=== PATIENT | female | born 1980 | race Caucasian/White ===

== ENCOUNTER 2016-10-26 14:28 | Inpatient (IN) | payer OTHER ==
[~2016-10-26] VITALS: Ht 154.9 cm; Wt 61.4 kg
[2016-10-26 14:59] LABS: MEAN PLAT.VOLUME 10.2 uM^3 (9.5-12.4); PLATELET COUNT 237 K/uL (156-360)
[2016-10-26 15:10] LABS: CHLORIDE 102 mEq/L (99-109); POTASSIUM 3.3 mEq/L (3.7-5.4); SODIUM 137 mEq/L (136-147)
[2016-10-26 15:11] LABS: GLUCOSE 127 mg/dL (70-99)
[2016-10-26 15:13] LABS: ANION GAP 15 MEQ/L (2-14)
[2016-10-26 15:15] LABS: GFR ESTIMATE (CALCULATED) > 59 mL/min/
[2016-10-26 15:16] LABS: UREA NITROGEN (BUN) 15 mg/dL (9-23)
[2016-10-26 15:26] LABS: HEMATOCRIT 44.6 % (36.0-46.0); MCH 33.3 PG (29.0-34.0); MCHC 35.9 G/DL (30.0-36.0); MCV 92.7 FL (83-99); RBC DIS.WIDTH-CV 12.7 % (11.8-14.6); RBC DIS.WIDTH-SD 43.3 % (39-53); RED BLOOD COUNT 4.81 M/uL (3.80-5.20); WHITE BLOOD COUNT 29.7 K/uL (4.1-10.2)
[2016-10-26 15:28] LABS: ADD MIUA? YES; BILIRUBIN SMALL; BLOOD NEGATIVE; COLOR AMBER ((YELLOW)); GLUCOSE (STRIP) NEGATIVE; KETONES 5; LEUKOCYTES MODERATE; NITRITE NEGATIVE; PROTEIN (STRIP) 100; SPECIFIC GRAVITY 1.036 (1.000-1.030); UROBILINOGEN 0.2 MG/DL (0.2-1.0)
[2016-10-26 15:33] LABS: TOTAL BILIRUBIN 1.2 mg/dL (0.0-1.0)
[2016-10-26 15:33] LABS: INTERNAL CONTROL VALID? YES
[2016-10-26 15:34] LABS: ALKALINE PHOSPHATASE 66 IU/L (3-129)
[2016-10-26 15:37] LABS: DIRECT BILIRUBIN 0.6 mg/dL (0.0-0.3)
[2016-10-26 15:38] LABS: LIPASE 8 U/L (1.0-51.0)
[2016-10-26 15:55] LABS: BACTERIA NONE SEEN /HPF; EPITHELIAL CELLS 2+ /HPF; HYALINE CASTS 15-20 /LPF; MUCUS 2+ /LPF; UCUL ADDED? YES; WHITE BLOOD CELLS TNTC /HPF (0-5)
[2016-10-26] MEDS ORDERED: FLAGYL500 MG PO (16:42)
[2016-10-26] MEDS ORDERED: MACROBID100 MG PO (16:42)
[2016-10-26] MEDS ORDERED: ZYRTEC10 M3 PO (16:42)
[2016-10-26] MEDS ORDERED: TYLENOL EXTRA500 MG PO (16:43)
[2016-10-26] MEDS ORDERED: FLONASE16 G1 BOTH NARES (16:43)
[2016-10-26] MEDS ORDERED: ADDERALL XR 1515 MG PO (16:43)
[2016-10-26] MEDS ORDERED: ONE-A-DAY ESSE1 EAC1 PO (16:44)
[2016-10-26 20:00] VITALS: BP 140/77
[2016-10-27] VITALS (8 sets, daily range): BP systolic 116–141; BP diastolic 56–91
[2016-10-27 06:41] LABS: HEMATOCRIT 37.5 % (36.0-46.0); MCH 32.7 PG (29.0-34.0); MCHC 34.4 G/DL (30.0-36.0); MCV 94.9 FL (83-99); MEAN PLAT.VOLUME 10.6 uM^3 (9.5-12.4); PLATELET COUNT 176 K/uL (156-360); RBC DIS.WIDTH-CV 13.1 % (11.8-14.6); RBC DIS.WIDTH-SD 45.3 % (39-53); RED BLOOD COUNT 3.95 M/uL (3.80-5.20); WHITE BLOOD COUNT 26.8 K/uL (4.1-10.2)
[2016-10-27 07:16] LABS: ANION GAP 12 MEQ/L (2-14); CHLORIDE 108 MEQ/L (99-109); GFR ESTIMATE (CALCULATED) > 59 mL/min/; POTASSIUM 3.2 MEQ/L (3.7-5.4); SAMPLE HEMOLYSIS CHECK 0; SAMPLE ICTERIC CHECK 0; SAMPLE LIPEMIA CHECK 0; SODIUM 141 MEQ/L (136-147); UREA NITROGEN (BUN) 13 mg/dL (9-23)
[2016-10-27 07:17] LABS: GLUCOSE 81 mg/dL (70-99)
[2016-10-27 07:34] LABS: ABS NEUTROPHIL COUNT 23.3; ATYPICAL LYMPHOCYTE 0.9 %; BAND NEUTROPHILS 38.8 % (0-8.0); EOSINOPHIL ABS CT 0.5; EOSINOPHILS 1.7 % (0-5.0); INSTRUMENT ABS NEUTROPHIL CT 24.5 K/uL; LYMPHOCYTES 2.1 % (15.0-45.0); METAMYELOCYTES 5.2 %; MYELOCYTES 0.4 %; PLAT.SUFFICIENCY DECREASED; SEG.NEUTROPHILS 48.3 % (46.0-76.0)
[2016-10-27 10:59] LABS: C DIFF TOXIN NEGATIVE (NEGATIVE); PROBE CHECK PASS; SPECIMEN PROCESSING CONTROL PASS
[2016-10-28] VITALS (7 sets, daily range): BP systolic 131–146; BP diastolic 62–91
[2016-10-28 06:04] LABS: HEMATOCRIT 35.7 % (36.0-46.0); MCH 33.2 PG (29.0-34.0); MCHC 35.3 G/DL (30.0-36.0); MCV 94.2 FL (83-99); MEAN PLAT.VOLUME 10.5 uM^3 (9.5-12.4); PLATELET COUNT 169 K/uL (156-360); RBC DIS.WIDTH-CV 13.2 % (11.8-14.6); RBC DIS.WIDTH-SD 45.7 % (39-53); RED BLOOD COUNT 3.79 M/uL (3.80-5.20); WHITE BLOOD COUNT 19.9 K/uL (4.1-10.2)
[2016-10-28 06:31] LABS: ANION GAP 8 MEQ/L (2-14); CHLORIDE 108 MEQ/L (99-109); GFR ESTIMATE (CALCULATED) > 59 mL/min/; GLUCOSE 66 mg/dL (70-99); POTASSIUM 3.1 MEQ/L (3.7-5.4); SAMPLE HEMOLYSIS CHECK 0; SAMPLE ICTERIC CHECK 0; SAMPLE LIPEMIA CHECK 0; SODIUM 139 MEQ/L (136-147); UREA NITROGEN (BUN) 8 mg/dL (9-23)
[2016-10-28 13:52] LABS: CHLAMYDIA TRACHOMATIS NEGATIVE; NEISSERIA GONORRHOEAE POSITIVE
[2016-10-29 04:07] VITALS: BP 129/63
[2016-10-29 08:00] VITALS: BP 125/74
[2016-10-29 11:24] VITALS: BP 124/76
[2016-10-29 22:52] VITALS: BP 142/76
[2016-10-30 06:13] LABS: HEMATOCRIT 35.3 % (36.0-46.0); MCH 32.7 PG (29.0-34.0); MCHC 35.7 G/DL (30.0-36.0); MCV 91.7 FL (83-99); MEAN PLAT.VOLUME 10.1 uM^3 (9.5-12.4); PLATELET COUNT 177 K/uL (156-360); RBC DIS.WIDTH-CV 13.4 % (11.8-14.6); RBC DIS.WIDTH-SD 45.6 % (39-53); RED BLOOD COUNT 3.85 M/uL (3.80-5.20); WHITE BLOOD COUNT 16.4 K/uL (4.1-10.2)
[2016-10-30 06:40] LABS: ANION GAP 12 MEQ/L (2-14); CHLORIDE 105 MEQ/L (99-109); GFR ESTIMATE (CALCULATED) > 59 mL/min/; GLUCOSE 66 mg/dL (70-99); MAGNESIUM 1.6 mg/dl (1.3-2.7); POTASSIUM 2.8 MEQ/L (3.7-5.4); SAMPLE HEMOLYSIS CHECK 0; SAMPLE ICTERIC CHECK 0; SAMPLE LIPEMIA CHECK 0; SODIUM 138 MEQ/L (136-147); UREA NITROGEN (BUN) 5 mg/dL (9-23)
[2016-10-30 08:12] VITALS: BP 140/84
[2016-10-30 14:07] LABS: QUANTITATIVE HCG < 4.0 MIU/ML
[2016-10-30 16:16] VITALS: BP 138/96
[2016-10-31 06:36] LABS: HEMATOCRIT 35.8 % (36.0-46.0); MCH 33.4 PG (29.0-34.0); MCHC 36.6 G/DL (30.0-36.0); MCV 91.3 FL (83-99); MEAN PLAT.VOLUME 9.7 uM^3 (9.5-12.4); PLATELET COUNT 217 K/uL (156-360); RBC DIS.WIDTH-CV 13.6 % (11.8-14.6); RED BLOOD COUNT 3.92 M/uL (3.80-5.20); WHITE BLOOD COUNT 14.9 K/uL (4.1-10.2)
[2016-10-31 07:37] LABS: ANION GAP 12 MEQ/L (2-14); CHLORIDE 105 MEQ/L (99-109); GFR ESTIMATE (CALCULATED) > 59 mL/min/; GLUCOSE 82 mg/dL (70-99); MAGNESIUM 1.6 mg/dl (1.3-2.7); POTASSIUM 3.1 MEQ/L (3.7-5.4); SAMPLE HEMOLYSIS CHECK 0; SAMPLE ICTERIC CHECK 0; SAMPLE LIPEMIA CHECK 0; SODIUM 138 MEQ/L (136-147); UREA NITROGEN (BUN) 4 mg/dL (9-23)
[2016-10-31 08:19] VITALS: BP 142/101
[2016-10-31] MEDS ORDERED: FLAGYL500 MG PO (10:38)
[2016-10-31] MEDS ORDERED: CEFTIN500 MG PO (10:39)
[2016-10-31] MEDS ORDERED: ENDOCET 5-3251 EACH PO (10:41)
[2016-10-31] MEDS ORDERED: ZOFRAN4 MG PO (10:41)
[2016-10-31] MEDS ORDERED: NICOTINE PATCH1 EAC1 TD (10:41)
[2016-10-31] MEDS ORDERED: K-DUR20 MEQ PO (10:51)
[2016-11-02 20:44] LABS: Neutrophil Cytoplasmic Aby Negative (Negative)
== END 2016-10-31 14:26 | disposition home or self-care (01) | DRG 872 ==
LOC: EME 14:28 → EXP 14:28 → EDOF 16:46 → 5EAST 16:46 → ENRESERV 16:50 → 5EAST 17:44 → EDOF 18:10 → ENRESERV 18:10 → 5EAST 19:52
PROVIDERS: Hospitalist; Internal Medicine; Nurse Practitioner Family
DX: A41.9 Sepsis, unspecified organism (principal); E87.2 Acidosis; A09 Infectious gastroenteritis and colitis, unspecified; N10 Acute pyelonephritis; F90.9 Attention-deficit hyperactivity disorder, unspecified type; F12.90 Cannabis use, unspecified, uncomplicated; F17.200 Nicotine dependence, unspecified, uncomplicated; E87.6 Hypokalemia; I10 Essential (primary) hypertension; A54.01 Gonococcal cystitis and urethritis, unspecified; E83.51 Hypocalcemia
CPT/HCPCS: 74174; 74175; 74177; 80048; 80076; 81003; 83605; 83690; 83735; 84702; 84702 90; 84703; 85025; 85027; 86021 90; 86038; 86430; 86900; 86901; 87040; 87086; 87177; 87210; 87329; 87491; 87493; 87506; 87591; 99281; 99285; J0610; J0696; J1885; J2405; J2765; J3010; J3480; J7030; J7050; S0030

== ENCOUNTER 2016-12-14 21:35 | Emergency (ER) | payer OTHER ==
[~2016-12-14] VITALS: Ht 154.9 cm; Wt 56.9 kg
[~2016-12-14 21:35] MED LIST: ADDERALL XR 1515 MG PO; CEFTIN500 MG PO; ENDOCET 5-3251 EACH PO; FLAGYL500 MG PO; FLONASE16 G1 BOTH NARES; K-DUR20 MEQ PO; MACROBID100 MG PO; NICOTINE PATCH1 EAC1 TD; ONE-A-DAY ESSE1 EAC1 PO; TYLENOL EXTRA500 MG PO; ZOFRAN4 MG PO; ZYRTEC10 M3 PO
[2016-12-14] MEDS ORDERED: BACTRIM,SEPT1 TABLET PO (23:20)
[2016-12-14 23:29] VITALS: BP 173/97
== END 2016-12-14 23:31 | disposition home or self-care (01) ==
LOC: EME 21:35 → RME 21:35
DX: S30.861A Insect bite (nonvenomous) of abdominal wall, initial encounter (principal); L08.9 Local infection of the skin and subcutaneous tissue, unspecified; W57.XXXA Bitten or stung by nonvenomous insect and other nonvenomous arthropods, initial encounter
CPT/HCPCS: 99281; 99284

== ENCOUNTER 2017-10-25 04:53 | Inpatient (IN) | payer OTHER ==
[~2017-10-25] VITALS: Ht 154.9 cm; Wt 66.2 kg
[2017-10-25] VITALS (9 sets, daily range): BP systolic 131–141; BP diastolic 63–90
[~2017-10-25 04:53] MED LIST changes: +BACTRIM,SEPT1 TABLET PO
[2017-10-25 05:45] LABS: HEMATOCRIT 31.8 % (36.0-46.0); HEMOGLOBIN 11.4 G/DL (11.9-15.5); MCH 31.1 PG (29.0-34.0); MCHC 35.8 G/DL (30.0-36.0); MCV 86.6 FL (83-99); PLATELET COUNT 221 K/uL (156-360); RBC DIS.WIDTH-CV 13.2 % (11.8-14.6); RBC DIS.WIDTH-SD 41.4 % (39-53); RED BLOOD COUNT 3.67 M/uL (3.80-5.20); WHITE BLOOD COUNT 15.9 K/uL (4.1-10.2)
[2017-10-25 06:32] LABS: COMMENTS - BLOOD GASES VENOUS CORD GAS
[2017-10-25 06:33] LABS: PCO2 38 mm Hg (35-45); PO2 30 mm Hg (80-100); pH 7.29 (7.35-7.45)
[2017-10-25 06:34] LABS: BASE EXCESS -7.7 mEq/L (-3 to +3); BICARBONATE 18.3 mEq/L (22-26); CARBOXY HGB 4.2 % (0-5); METHEMOGLOBIN 1.4 % (0-1.5); O2 SATURATION (CALCULATED) 85.2 % (95-99)
[2017-10-25 06:36] LABS: COMMENTS - BLOOD GASES ARTERIAL CORD GAS; pH 7.19 (7.35-7.45)
[2017-10-25 06:37] LABS: BASE EXCESS -6.7 mEq/L (-3 to +3); BICARBONATE 22.5 mEq/L (22-26); CARBOXY HGB 3.6 % (0-5); METHEMOGLOBIN 1.5 % (0-1.5); O2 SATURATION (CALCULATED) 24.6 % (95-99); PCO2 59 mm Hg (35-45); PO2 < 30 mm Hg (80-100)
[2017-10-25 07:26] LABS: BASOPHIL (%) 0.5 % (0-1); BASOPHIL COUNT 0.1 K/uL (0-0.1); EOSINOPHIL (%) 1.1 % (0-5); EOSINOPHIL COUNT 0.2 K/uL (0-0.3); IMMATURE GRANULOCYTE (%) 0.6 % (0.0-0.7); LYMPHOCYTE (%) 21.4 % (15-42); LYMPHOCYTE COUNT 3.3 K/uL (1.0-2.8); MONOCYTE (%) 5.5 % (3-12); MONOCYTE COUNT 0.8 K/uL (0-0.8); NEUTROPHIL (%) 70.9 % (45-76); NEUTROPHIL COUNT 10.8 K/uL (1.8-6.4)
[2017-10-25] MEDS ORDERED: ZANTAC150 MG PO (08:55)
[2017-10-25] MEDS ORDERED: VALACYCLOVIR500 MG PO (08:55)
[2017-10-25] MEDS ORDERED: PRENATAL TABLE1 EAC3 PO (08:56)
[2017-10-25 16:00] LABS: AMPHETAMINE NEGATIVE (500 ng/mL); BARBITURATES NEGATIVE (200 ng/mL); BENZODIAZEPINES NEGATIVE (150 ng/mL); BUPRENORPHINE NEGATIVE (10 ng/mL); COCAINE NEGATIVE (150 ng/mL); METHADONE NEGATIVE (200 ng/mL); METHAMPHETAMINE NEGATIVE (500 ng/mL); OPIATES (MORPHINE) NEGATIVE (100 ng/mL); OXYCODONE NEGATIVE (100 ng/mL); PHENCYCLIDINE NEGATIVE (25 ng/mL); PROPOXYPHENE NEGATIVE (300 ng/mL); THC CANNABINOIDS PRESUMPTIVE POSITIVE (50 ng/mL); TRICYCLIC ANTIDEPRESSANTS NEGATIVE (300 ng/mL)
[2017-10-26 05:35] LABS: BASOPHIL (%) 0.6 % (0-1); BASOPHIL COUNT 0.1 K/uL (0-0.1); EOSINOPHIL (%) 1.3 % (0-5); EOSINOPHIL COUNT 0.2 K/uL (0-0.3); HEMATOCRIT 29.3 % (36.0-46.0); IMMATURE GRANULOCYTE (%) 0.6 % (0.0-0.7); LYMPHOCYTE (%) 24.4 % (15-42); LYMPHOCYTE COUNT 3.5 K/uL (1.0-2.8); MCH 30.4 PG (29.0-34.0); MCHC 34.1 G/DL (30.0-36.0); MCV 89.1 FL (83-99); MONOCYTE (%) 5.7 % (3-12); MONOCYTE COUNT 0.8 K/uL (0-0.8); NEUTROPHIL (%) 67.4 % (45-76); NEUTROPHIL COUNT 9.7 K/uL (1.8-6.4); PLATELET COUNT 204 K/uL (156-360); RBC DIS.WIDTH-CV 13.6 % (11.8-14.6); RBC DIS.WIDTH-SD 44.5 % (39-53); RED BLOOD COUNT 3.29 M/uL (3.80-5.20); WHITE BLOOD COUNT 14.4 K/uL (4.1-10.2)
[2017-10-27 07:03] VITALS: BP 134/63
[2017-10-27] MEDS ORDERED: IBUPROFEN800 MG PO (12:21)
[2017-10-27] MEDS ORDERED: CAMILA0.35 MG PO (12:22)
[2017-10-27] MEDS ORDERED: FERROUS GLUCON324 MG PO (12:22)
== END 2017-10-27 14:15 | disposition home or self-care (01) | DRG 774 ==
LOC: LDRP-OP → 2WEST 04:54 → LDRP-OP 12-02 09:21
PROVIDERS: Advanced Practice Midwife; Obstetrics & Gynecology
PROC: 10D07Z6 Extraction of Products of Conception, Vacuum, Via Natural or Artificial Opening (ICD-10-PCS; principal; 2017-10-25)
DX: O15.1 Eclampsia complicating labor (principal); O10.92 Unspecified pre-existing hypertension complicating childbirth; O99.824 Streptococcus B carrier state complicating childbirth; O76 Abnormality in fetal heart rate and rhythm complicating labor and delivery; Z3A.39 39 weeks gestation of pregnancy; Z37.0 Single live birth; O98.32 Other infections with a predominantly sexual mode of transmission complicating childbirth; O75.89 Other specified complications of labor and delivery; E87.2 Acidosis; O99.334 Smoking (tobacco) complicating childbirth; O99.02 Anemia complicating childbirth; D62 Acute posthemorrhagic anemia; E66.3 Overweight; A60.00 Herpesviral infection of urogenital system, unspecified; F17.200 Nicotine dependence, unspecified, uncomplicated; Z68.25 Body mass index [BMI] 25.0-25.9, adult
CPT/HCPCS: 36600; 84999; 85025; 85027; 86850; 86900; 86901; J2540; J7120